=== PATIENT | male | born 1970 | race African-American/Black ===

== ENCOUNTER 2016-07-27 23:13 | Inpatient (IN) | payer BC ==
[2016-07-27] MEDS ORDERED: ONDANSETRON 4 MG/2 ML VIAL IVPUSH STA (23:40)
[2016-07-27] MEDS ORDERED: morphine CARPU-JECT 2 MG/1 ML DISP.SYRIN IVPUSH ONE (23:40)
--- NOTE | 2016-07-27 23:40 | PDOC ---
History of Present Illness - General History Source: Patient Exam Limitations: No Limitations - History of Present Illness Initial Comments: 07/27/16 23:51 The patient is a 46 year old male with significant past medical history of MS, CAD s/p stents x3, hypertension, hyperlipidemia, and gout who presents to the ED with sudden onset of midsternal chest pain prior to arrival. Patient reports diaphoresis earlier today that resolved. He states while having dinner today, he developed midsternal chest pain that he describes as a pressure-like sensation, nonradiating and 6/10, in severity. Reports associated nausea and some difficulty breathing, but no vomiting. Denies lightheadedness, SOB, jaw pain, shoulder pain, arm pain, or leg swelling. Patient is visiting from [place]. States taking all of his medications today. The patient denies fever, chills, cough, abdominal pain, and diarrhea. Allergies: NKDA Social History: No alcohol, tobacco, or drug use reported. Past Surgical History: s/p cardiac stents x3 PCP: None reported <Parvin Murguia - Last Filed: 07/27/16 23:52> - General History Source: Patient <Wilder Cheek - Last Filed: 07/28/16 20:02> - General Chief Complaint: Chest Pain Stated Complaint: CHEST PAIN Time Seen by Provider: 07/27/16 23:38 Past History <Parvin Murguia - Last Filed: 07/27/16 23:52> - Past Medical History Cardiac Disorders: Yes (MS, STENTSX 3) HTN: Yes - Surgical History Cardiac Surgery: Yes (X 3) - Psycho/Social/Smoking Cessation Hx Suicidal Ideation: No Smoking History: Never smoked Have you smoked in the past 12 months: No Information on smoking cessation initiated: No Hx Alcohol Use: No Drug/Substance Use Hx: No Substance Use Type: None <Wilder Cheek - Last Filed: 07/28/16 20:02> - Past Medical History Allergies/Adverse Reactions: Allergies Allergy/AdvReac Type Severity Reaction Status Date / Time No Known Allergies Allergy Verified 07/27/16 23:36 Home Medications: Ambulatory Orders Simvastatin 40 mg PO HS 12/08/15 Aspirin [ASA -] 81 mg PO DAILY tab.chew 07/28/16 Clopidogrel Bisulfate [Plavix -] 75 mg PO DAILY tablet 07/28/16 Heparin - 5,000 unit IVPUSH PRN PRN #0 vial 07/28/16 Heparin Infusion - 500 ml IVPB TITR #1 bag 07/28/16 Metoprolol Succinate [Toprol XL -] 25 mg PO DAILY #30 mg 07/28/16 Morphine Injection - [Morphine Injection 4 mg/1 mL -] 4 mg IVPUSH Q4H PRN #0 mg MDD 6 07/28/16 Review of Systems - Review of Systems Able to Perform ROS?: Yes Comments:: 07/27/16 23:51 CONSTITUTIONAL: +diaphoresis Absent: fever, chills,generalized weakness, malaise, loss of appetite HEENT: Absent: rhinorrhea, nasal congestion, throat pain, throat swelling, difficulty swallowing, mouth swelling, ear pain, eye pain, visual Changes CARDIOVASCULAR: +midsternal chest pain Absent: syncope, palpitations, irregular heart rate, lightheadedness, peripheral edema RESPIRATORY: +mild SOB Absent: cough, dyspnea with exertion, orthopnea, wheezing, stridor, hemoptysis GASTROINTESTINAL: +nausea Absent: abdominal pain, abdominal distension, vomiting, diarrhea, constipation, melena, hematochezia GENITOURINARY: Absent: dysuria, frequency, urgency, hesitancy, hematuria, flank pain, genital pain MUSCULOSKELETAL: Absent: myalgia, arthralgia, joint swelling SKIN: Absent: rash, itching, pallor NEUROLOGIC: Absent: headache, focal weakness or paresthesias, dizziness, unsteady gait, seizure, mental status changes, bladder or bowel incontinence <Parvin Murguia - Last Filed: 07/27/16 23:52> *Physical Exam - Vital Signs Last Vital Signs Temp Pulse Resp BP Pulse Ox 98.9 F 88 22 156/96 99 07/27/16 23:36 07/27/16 23:36 07/27/16 23:36 07/27/16 23:36 07/27/16 23:36 - Physical Exam Comments: 07/27/16 23:51 GENERAL: Well developed, well nourished. Awake and alert. Moderate distress. HEENT: Normocephalic, atraumatic. PERRLA, EOMI. No conjunctival pallor. Sclera are non- icteric. Moist mucous membranes. Oropharynx is clear. NECK: Supple. Full ROM. No JVD. Carotid pulses 2+ and symmetric, without bruits. No thyromegaly. No lymphadenopathy. CARDIOVASCULAR: Regular rate and rhythm. No murmurs, rubs, or gallops. Distal pulses are 2+ and symmetric. PULMONARY: No evidence of respiratory distress. Lungs clear to auscultation bilaterally. No wheezing, rales or rhonchi. ABDOMINAL: Soft. Non-tender. Non-distended. No rebound or guarding. No organomegaly. Normoactive bowel sounds. MUSCULOSKELETAL Normal range of motion at all joints. No bony deformities or tenderness. No CVA tenderness. EXTREMITIES: No cyanosis. No clubbing. No edema. No calf tenderness. SKIN: Warm and dry. Normal capillary refill. No rashes. No jaundice. NEUROLOGICAL: Alert, awake, appropriate. Cranial nerves 2-12 intact. Moving all extremities. No gross focal neurological deficits. PSYCHIATRIC: Cooperative. Good eye contact. Appropriate mood and affect. <Parvin Murguia - Last Filed: 07/27/16 23:52> - Vital Signs Last Vital Signs Temp Pulse Resp BP Pulse Ox 98.9 F 88 22 156/96 99 07/27/16 23:36 07/27/16 23:36 07/27/16 23:36 07/27/16 23:36 07/27/16 23:36 <Wilder Cheek - Last Filed: 07/28/16 20:02> Heart Score/ECG Review - ECG Impressions Comment:: 07/27/16 23:52 Sinus rhythm with frequent premature ventricular complexes @93bpm Possible L atrial enlargement RBBB T wave abnormality, consider lateral ischemia Abnormal ECG <Parvin Murguia - Last Filed: 07/27/16 23:52> ED Treatment Course - LABORATORY CBC & Chemistry Diagram: 07/27/16 23:44 07/27/16 23:44 <Parvin Murguia - Last Filed: 07/27/16 23:52> - LABORATORY CBC & Chemistry Diagram: 07/28/16 05:35 07/28/16 16:40 - RADIOLOGY Radiology Studies Ordered: Category Date Time Status CHEST X-RAY PORTABLE* [RAD] Stat Radiology 07/27/16 23:38 Ordered <Wilder Cheek - Last Filed: 07/28/16 20:02> Medical Decision Making - Medical Decision Making 07/28/16 20:01 Dr. Cheek: The scribe's documentation has been prepared under my direction and personally reviewed by me in its entirery. I confirm that the note above accurately reflects all work, treatment, procedures, and medical decision making performed by me. Pt with chest pain with elevated troponin. Will admitt to evaluate for TELE <Wilder Cheek - Last Filed: 07/28/16 20:02> *DC/Admit/Observation/Transfer - Attestations Scribe Attestion: 07/27/16 23:51 Documentation prepared by Parvin Murguia, acting as medical insurance claims processor for Wilder Cheek MD <Parvin Murguia - Last Filed: 07/27/16 23:52> - Discharge Dispostion Admit: Yes <Wilder Cheek - Last Filed: 07/28/16 20:02> Diagnosis at time of Disposition: NSTEMI (non-ST elevated myocardial infarction)
[2016-07-27] MEDS ORDERED: NITROGLYCERIN 2% OINTMENT - 1GM PACKET TD ONE (23:41)
[2016-07-27] MEDS ORDERED: morphine CARPU-JECT 4 MG/1 ML DISP.SYRIN ONE (23:51)
[2016-07-27] MEDS ORDERED: ONDANSETRON 4 MG/2 ML VIAL ONE (23:51)
[2016-07-27] MEDS ORDERED: morphine CARPU-JECT 2 MG/1 ML DISP.SYRIN ONE (23:51)
[2016-07-27 23:53] LABS: BASOPHIL 1.3 % (0-2.0); EOSINOPHIL 1.8 % (0-4.5); MCH 28.9 pg (25.7-33.7); MCHC 33.6 g/dl (32.0-35.9); MEAN CELL VOLUME 86.2 fl (80-96); MEAN PLT VOLUME 8.3 fl (7.5-11.1); NEUTROPHILS 60.5 % (42.8-82.8); PLATELET COUNT 214 K/MM3 (134-434); RDW 14.6 % (11.9-15.9); WHITE BLOOD COUNT 7.8 K/mm3 (4.0-10.0)
[2016-07-28 00:14] LABS: ALBUMIN 2.6 g/dl (3.4-5.0); BILIRUBIN,TOTAL 0.4 mg/dL (0.2-1.0); CALCIUM 7.7 mg/dL (8.5-10.1); TOT PROT 6.3 g/dl (6.4-8.2)
[2016-07-28 00:18] LABS: INR 1.1 (0.82-1.09); PROTHROMBIN TIME (PATIENT) 12.1 SEC (9.98-11.88)
[2016-07-28 00:26] LABS: TROPONIN I 0.26 ng/ml (0.00-0.05)
[2016-07-28] MEDS ORDERED: POTASSIUM CHLORIDE TABS 20 MEQ TABLET.ER (FP) PO ONE ×2 (00:54→01:03)
[2016-07-28] MEDS ORDERED: CALCIUM GLUCONATE 10% - 1,000 MG/10 ML VIAL IVPB ONE (00:55)
[2016-07-28] MEDS ORDERED: METOPROLOL TARTRATE 5 MG/5 ML VIAL IVPUSH ONE ×2 (00:57→02:42)
[2016-07-28] MEDS ORDERED: morphine CARPU-JECT 2 MG/1 ML DISP.SYRIN IVPUSH ONE (00:57)
[2016-07-28] MEDS ORDERED: CLOPIDOGREL BISULFATE 300 MG TABLET PO ONE (00:58)
[2016-07-28] MEDS ORDERED: morphine CARPU-JECT 4 MG/1 ML DISP.SYRIN ONE (01:03)
[2016-07-28] MEDS ORDERED: CALCIUM GLUCONATE 10% - 1,000 MG/10 ML VIAL ONE (01:03)
[2016-07-28] MEDS ORDERED: METOPROLOL TARTRATE 5 MG/5 ML VIAL ONE (01:03)
[2016-07-28] MEDS ORDERED: CLOPIDOGREL BISULFATE 300 MG TABLET ONE (01:04)
--- NOTE | 2016-07-28 01:08 | HP ---
CHIEF COMPLAINT: Midsternal Chest Pain PCP: Not on Staff Emergency Generator Mechanic: Dr. Clarke ( [employer] [place] [facility] ) Pharmacy: [facility] [address] [place] [address] HISTORY OF PRESENT ILLNESS: This is a 46 y/o male with a significant past medical history of UT, CAD s/p Stents x3, HTN, HLD, Gout. Who presents to the ED with non-radiating midsternal chest pressure, +diaphoretic since last night. Patient reports having nausea with SOB which has resolved. PS 7/10. Patient is from out of town, last visit with his Emergency Generator Mechanic was 3 months ago, patient states" everything was fine". Patient denies fever, chills, cough, AP, vomiting, diarrhea, constipation, dysuria. ER course was notable for: (1) Troponin I 0.26 (2) EKG- SR with PVCs, RBBB, T wave abnormality, consider lateral ischemia (3) K 3.4 (4) Cr 2.0 Recent Travel: None PAST MEDICAL HISTORY: See HPI PAST SURGICAL HISTORY: See HPI Social History: Smoking: Former Alcohol: Occasional Drugs: None Lives with Spouse Family History: Non-Contributory Allergies No Known Allergies Allergy (Verified 07/27/16 23:36) HOME MEDICATIONS: Home Medications Medication Instructions Recorded Allopurinol 300 mg PO DAILY 12/08/15 Aspirin [ASA -] 81 mg PO DAILY 12/08/15 Carvedilol [Coreg] 25 mg PO DAILY 12/08/15 Clopidogrel Bisulfate [Plavix -] 75 mg PO DAILY 12/08/15 Simvastatin 40 mg PO HS 12/08/15 Tramadol HCl 50 mg PO QID PRN 07/28/16 REVIEW OF SYSTEMS CONSTITUTIONAL: diaphoresis Absent: fever, chills, generalized weakness, malaise, loss of appetite, weight change HEENT: Absent: rhinorrhea, nasal congestion, throat pain, throat swelling, difficulty swallowing, mouth swelling, ear pain, eye pain, visual changes CARDIOVASCULAR: chest pain Absent: syncope, palpitations, irregular heart rate, lightheadedness, peripheral edema RESPIRATORY: shortness of breath Absent: cough, dyspnea with exertion, orthopnea, wheezing, stridor, hemoptysis GASTROINTESTINAL: nausea Absent: abdominal pain, abdominal distension, vomiting, diarrhea, constipation, melena, hematochezia GENITOURINARY: Absent: dysuria, frequency, urgency, hesitancy, hematuria, flank pain, genital pain MUSCULOSKELETAL: Absent: myalgia, arthralgia, joint swelling, back pain, neck pain SKIN: Absent: rash, itching, pallor HEMATOLOGIC/IMMUNOLOGIC: Absent: easy bleeding, easy bruising, lymphadenopathy, frequent infections ENDOCRINE: Absent: unexplained weight gain, unexplained weight loss, heat intolerance, cold intolerance NEUROLOGIC: Absent: headache, focal weakness or paresthesias, dizziness, unsteady gait, seizure, mental status changes, bladder or bowel incontinence PSYCHIATRIC: Absent: anxiety, depression, suicidal or homicidal ideation, hallucinations. PHYSICAL EXAMINATION Vital Signs - 24 hr 07/27/16 23:36 Temperature 98.9 F Pulse Rate 88 Respiratory 22 Rate Blood Pressure 156/96 O2 Sat by Pulse 99 Oximetry (%) GENERAL: Awake, alert, and fully oriented. Severely Obese moderate distress. HEAD: Normal with no signs of trauma. EYES: Pupils equal, round and reactive to light, extraocular movements intact, sclera anicteric, conjunctiva clear. No lid lag. EARS, NOSE, THROAT: Ears normal, nares patent, oropharynx clear without exudates. Moist mucous membranes. NECK: Normal range of motion, supple without lymphadenopathy, JVD, or masses. LUNGS: Breath sounds equal, clear to auscultation bilaterally. No wheezes, and no crackles. No accessory muscle use. HEART: Regular rate and rhythm, normal S1 and S2 without murmur, rub or gallop. ABDOMEN: Soft, obese, nontender, not distended, normoactive bowel sounds, no guarding, no rebound, no masses. No hepatomegaly or splenomegaly. MUSCULOSKELETAL: Normal range of motion at all joints. No bony deformities or tenderness. No CVA tenderness. UPPER EXTREMITIES: 2+ pulses, warm, well-perfused. No cyanosis. No clubbing. No peripheral edema. LOWER EXTREMITIES: 2+ pulses, warm, well-perfused. No calf tenderness. Trace peripheral edema lower extremities. NEUROLOGICAL: Cranial nerves II-XII intact. Normal speech. Gait not observed. PSYCHIATRIC: Cooperative. Good eye contact. Appropriate mood and affect. SKIN: Warm, dry, normal turgor, no rashes or lesions noted, normal capillary refill. Laboratory Results - last 24 hr 07/27/16 07/27/16 07/27/16 23:44 23:44 23:44 WBC 7.8 RBC 5.02 Hgb 14.5 Hct 43.3 MCV 86.2 MCHC 33.6 RDW 14.6 Plt Count 214 MPV 8.3 Neutrophils % 60.5 Lymphocytes % 24.8 Monocytes % 11.6 H Eosinophils % 1.8 Basophils % 1.3 INR 1.10 Sodium 140 Potassium 3.4 L Chloride 102 Carbon Dioxide 28 Anion Gap 10 BUN 16 Creatinine 2.0 H Creat Clearance w eGFR 36.31 Random Glucose 105 Calcium 7.7 L Total Bilirubin 0.4 AST 48 H ALT 31 Alkaline Phosphatase 90 Creatine Kinase 879 H Creatine Kinase Index 0.8 CK-MB (CK-2) 6.834 H CK-MB (CK-2) Rel Index Troponin I 0.26 H Total Protein 6.3 L Albumin 2.6 L 07/27/16 23:44 WBC RBC Hgb Hct MCV MCHC RDW Plt Count MPV Neutrophils % Lymphocytes % Monocytes % Eosinophils % Basophils % INR Sodium Potassium Chloride Carbon Dioxide Anion Gap BUN Creatinine Creat Clearance w eGFR Random Glucose Calcium Total Bilirubin AST ALT Alkaline Phosphatase Creatine Kinase Creatine Kinase Index CK-MB (CK-2) CK-MB (CK-2) Rel Index Cancelled Troponin I Total Protein Albumin ASSESSMENT/PLAN: This is a 46 y/o male with a significant medical history of: UT, CAD s/p Stents x3, HTN, HLD, Gout. Admitted to Telemetry NSTEMI for further evaluation of their emergent condition. Problem List - Problem (1) NSTEMI (non-ST elevated myocardial infarction) Assessment/Plan: - Continue Tele monitoring - HEART Score 6 - YONATAN Score 3 - EKG reviewed - Appreciate Cardiology Consult - NTG paste, BB, Plavix, Morphine given in ED - Heparin Protocol initiated - Stool Occult Series - Continue Asa, BB, Plavix, Statin - Morphine prn - Echo in am - Consider Stress test Code(s): I21.4 - NON-ST ELEVATION (NSTEMI) MYOCARDIAL INFARCTION (2) CAD (coronary artery disease) Assessment/Plan: - s/p Stent placement x3 (2015) - Continue Tele monitoring - EKG- SR with multifocal PVCs, RBBB, T wave abnormality, no prior study available to compare - Continue Coreg - Will need to verify with home pharmacy Losartan, Lasix Code(s): I25.10 - ATHSCL HEART DISEASE OF [place] CORONARY ARTERY W/O ANG PCTRS (3) JENAE (acute kidney injury) Assessment/Plan: - ?Baseline - Will not give IVF at this time 2/2 patient's elevated BP - Will repeat BMP this am - Monitor and treat with interventions according - Consider renal US Code(s): N17.9 - ACUTE KIDNEY FAILURE, UNSPECIFIED (4) HTN (hypertension) Assessment/Plan: - Uncontrolled - Lopressor given in ED - Continue home med - Monitor BP - Monitor renal function Code(s): I10 - ESSENTIAL (PRIMARY) HYPERTENSION (5) HLD (hyperlipidemia) Assessment/Plan: - Continue Simvastatin - Lipid Panel in am Code(s): E78.5 - HYPERLIPIDEMIA, UNSPECIFIED (6) BMI 40.0-44.9, adult Assessment/Plan: Counseled patient on weight loss - [facility] - Appreciate RD Consult Code(s): Z68.41 - BODY MASS INDEX (BMI) 40.0-44.9, ADULT (7) Gout Assessment/Plan: - Continue Allopurinol Code(s): M10.9 - GOUT, UNSPECIFIED (8) DVT prophylaxis Assessment/Plan: - OOB - SCDs - Continue Heparin Infusion for NSTEMI Code(s): AOV8825 - Visit type - Emergency Visit Emergency Visit: Yes ED Registration Date: 07/28/16 Care time: The patient presented to the Emergency Department on the above date and was hospitalized for further evaluation of their emergent condition. - New Patient This patient is new to me today: Yes Date on this admission: 07/28/16 - Critical Care Critical Care patient: No
[2016-07-28] MEDS ORDERED: ENOXAPARIN NA (PORCINE) 40 MG/0.4 ML DISP.SYRIN SQ ONE (02:25)
[2016-07-28] MEDS ORDERED: HEPARIN NA (PORCINE) 5,000 UNITS/ML 1ML VIAL IVPUSH PRN (02:44)
[2016-07-28] MEDS ORDERED: HEPARIN INFUSION - 500 ML IVPB SCH (02:45)
[2016-07-28 04:59] VITALS: BMI 43.9
[2016-07-28] MEDS: morphine CARPU-JECT 4 MG/1 ML DISP.SYRIN IVPUSH PRN ×3 (07:46→21:20)
[2016-07-28 08:03] LABS: MCH 28.5 pg (25.7-33.7); MCHC 32.6 g/dl (32.0-35.9); MEAN CELL VOLUME 87.4 fl (80-96); PLATELET COUNT 189 K/MM3 (134-434); RDW 14.9 % (11.9-15.9); WHITE BLOOD COUNT 6.7 K/mm3 (4.0-10.0)
[2016-07-28 08:38] LABS: CHOLESTEROL 255 mg/dL (50-200); LDL CHOLESTEROL (ONLY SJRH) 171 mg/dL (5-100)
[2016-07-28 09:26] LABS: TROPONIN I 1.76 ng/ml (0.00-0.05)
--- NOTE | 2016-07-28 09:53 | CON.CARD ---
Consult Consult Specialty:: Cardiology Reason for Consultation:: nonstemi - History of Present Illness History of Present Illness: The patient is a 46 year old male with significant past medical history of PA, CAD s/p stents x3, hypertension, hyperlipidemia, and gout who presents to the ED with sudden onset of midsternal chest pain prior to arrival. Patient reports diaphoresis earlier today that resolved. He states while having dinner today, he developed midsternal chest pain that he describes as a pressure-like sensation, nonradiating and 6/10, in severity. Reports associated nausea and some difficulty breathing, but no vomiting. Denies lightheadedness, SOB, jaw pain, shoulder pain, arm pain, or leg swelling. Patient is visiting from [place]. States taking all of his medications today. The patient denies fever, chills, cough, abdominal pain, and diarrhea. Allergies: NKDA Social History: No alcohol, tobacco, or drug use reported. Past Surgical History: s/p cardiac stents x3 PCP: None reported - History Source History Provided By: Patient, Medical Record - Past Medical History Cardio/Vascular: Yes: CAD, CHF, HTN, Hyperlipdemia - Alcohol/Substance Use Hx Alcohol Use: No - Smoking History Smoking history: Never smoked Have you smoked in the past 12 months: No Home Medications - Allergies Allergies/Adverse Reactions: Allergies Allergy/AdvReac Type Severity Reaction Status Date / Time No Known Allergies Allergy Verified 07/27/16 23:36 - Home Medications Home Medications: Ambulatory Orders Allopurinol 300 mg PO DAILY 12/08/15 Aspirin [ASA -] 81 mg PO DAILY 12/08/15 Carvedilol [Coreg] 25 mg PO DAILY 12/08/15 Clopidogrel Bisulfate [Plavix -] 75 mg PO DAILY 12/08/15 Simvastatin 40 mg PO HS 12/08/15 Tramadol HCl 50 mg PO QID PRN 07/28/16 Review of Systems - Review of Systems Constitutional: reports: No Symptoms Eyes: reports: No Symptoms HENT: reports: No Symptoms Neck: reports: No Symptoms Cardiovascular: reports: Chest Pain Gastrointestinal: reports: No Symptoms Genitourinary: reports: No Symptoms Breasts: reports: No Symptoms Reported Musculoskeletal: reports: No Symptoms Integumentary: reports: No Symptoms Neurological: reports: No Symptoms Endocrine: reports: No Symptoms Hematology/Lymphatic: reports: No Symptoms Psychiatric: reports: No Symptoms Vital Signs: Vital Signs Temperature 97.9 F 07/28/16 04:14 Pulse Rate 80 07/28/16 06:00 Respiratory Rate 20 07/28/16 06:00 Blood Pressure 140/94 07/28/16 06:00 O2 Sat by Pulse Oximetry (%) 98 07/28/16 04:37 Constitutional: Yes: Well Nourished, No Distress, Calm Eyes: Yes: WNL, Conjunctiva Clear, EOM Intact HENT: Yes: WNL, Atraumatic, Normocephalic Neck: Yes: WNL, Supple, Trachea Midline Respiratory: Yes: WNL, Regular, CTA Bilaterally Gastrointestinal: Yes: WNL, Normal Bowel Sounds Renal/: Yes: WNL Cardiovascular: Yes: WNL, Regular Rate and Rhythm Musculoskeletal: Yes: WNL Extremities: Yes: WNL Integumentary: Yes: WNL Neurological: Yes: WNL, Alert, Oriented ...Motor Strength: WNL Psychiatric: Yes: WNL, Alert, Oriented - Other Data Labs, Other Data: CBC, BMP 07/28/16 05:35 INR, PTT INR 1.10 (0.82-1.09) 07/27/16 23:44 Troponin, BNP 07/28/16 05:35 Troponin I 1.76 H* D Troponin, BNP 07/28/16 05:35 Troponin I 1.76 H* D Imaging - Results Chest X-ray: Image Reviewed (prominent mediastinum no i/e) EKG: Image Reviewed (sr rbbb lateral st depressions) Problem List - Problems (1) JENAE (acute kidney injury) Code(s): N17.9 - ACUTE KIDNEY FAILURE, UNSPECIFIED (2) BMI 40.0-44.9, adult Code(s): Z68.41 - BODY MASS INDEX (BMI) 40.0-44.9, ADULT (3) CAD (coronary artery disease) Code(s): I25.10 - ATHSCL HEART DISEASE OF [place] CORONARY ARTERY W/O ANG PCTRS (4) DVT prophylaxis Code(s): [id number] - (5) Gout Code(s): M10.9 - GOUT, UNSPECIFIED (6) HLD (hyperlipidemia) Code(s): E78.5 - HYPERLIPIDEMIA, UNSPECIFIED (7) HTN (hypertension) Code(s): I10 - ESSENTIAL (PRIMARY) HYPERTENSION (8) NSTEMI (non-ST elevated myocardial infarction) Code(s): I21.4 - NON-ST ELEVATION (NSTEMI) MYOCARDIAL INFARCTION (9) Severe obesity (BMI 35.0-39.9) with comorbidity Code(s): E66.01 - MORBID (SEVERE) OBESITY DUE TO EXCESS CALORIES (10) Gout attack Code(s): M10.9 - GOUT, UNSPECIFIED Qualifiers: Gout site: knee Gout etiology: unspecified cause Laterality: right Qualified Code(s): M10.9 - Gout, unspecified Assessment/Plan nonstemi CP free now moderatel reduced ef dilated AR 4 cm ? (perhaps normal; finding for BSA3.1 m2 Prominent mediastinum 3 cardiac stents 1 year agoHLD morbid obesity htn acute kidney injury Plan will transfer for c. cath and aortogram add BB cont heparin bb lipitor
[2016-07-28] MEDS ORDERED: ASPIRIN 81 MG CHEWABLE TABLETS PO SCH (10:00)
[2016-07-28] MEDS ORDERED: CLOPIDOGREL BISULFATE 75 MG TABLET (FP) PO SCH (10:00)
[2016-07-28] MEDS ORDERED: ATORVASTATIN CA 80 MG TABLET (FP) PO ONE (10:56)
[2016-07-28] MEDS ORDERED: METOPROLOL SUCCINATE 25 MG TAB.SR.24H (FP) PO SCH (11:00)
[2016-07-28 13:28] LABS: TROPONIN I 4.81 ng/ml (0.00-0.05)
--- NOTE | 2016-07-28 13:31 | EKG ---
Test Reason : Blood Pressure : / mmHG Vent. Rate : 093 BPM Atrial Rate : 093 BPM P-R Int : 178 ms QRS Dur : 164 ms QT Int : 430 ms P-R-T Axes : 078 234 013 degrees QTc Int : 534 ms SINUS RHYTHM WITH FREQUENT PREMATURE VENTRICULAR COMPLEXES POSSIBLE LEFT ATRIAL ENLARGEMENT RIGHT BUNDLE BRANCH BLOCK T WAVE ABNORMALITY, CONSIDER LATERAL ISCHEMIA ABNORMAL ECG NO PREVIOUS ECGS AVAILABLE Confirmed by JEREMIAH GOSS, NOÉ ([id number]) on 07/28/2016 1:31:17 PM Referred By: Confirmed By:NOÉ DANIELS MD
--- NOTE | 2016-07-28 14:42 | DS ---
Physical Exam: SUBJECTIVE: Patient seen and examined OBJECTIVE: Vital Signs Period Temp Pulse Resp BP Sys/Mercer Pulse Ox Last 24 Hr 97.9 F-98.2 F 71-83 16-22 135-177/85-107 93-98 PHYSICAL EXAM GENERAL: The patient is awake, alert, and fully oriented, in no acute distress. HEAD: Normal with no signs of trauma. EYES: PERRL, extraocular movements intact, sclera anicteric, conjunctiva clear. ENT: Ears normal, nares patent, oropharynx clear without exudates, moist mucous membranes. NECK: Trachea midline, full range of motion, supple. LUNGS: Breath sounds equal, clear to auscultation bilaterally, no wheezes, no crackles, no accessory muscle use. HEART: Regular rate and rhythm, S1, S2 without murmur, rub or gallop. ABDOMEN: Soft, nontender, nondistended, normoactive bowel sounds, no guarding, no rebound, no hepatosplenomegaly, no masses. EXTREMITIES: 2+ pulses, warm, well-perfused, no edema. NEUROLOGICAL: Cranial nerves II through XII grossly intact. Normal speech, gait not observed. PSYCH: Normal mood, normal affect. SKIN: Warm, dry, normal turgor, no rashes or lesions noted. LABS Laboratory Results - last 24 hr 07/28/16 07/28/16 07/28/16 05:35 05:35 05:35 WBC RBC Hgb Hct MCV MCHC RDW Plt Count MPV PTT (Actin FS) Hemoglobin A1c % 5.9 Creatine Kinase 1022 H Creatine Kinase Index 3.9 CK-MB (CK-2) 39.804 H CK-MB (CK-2) Rel Index Troponin I 1.76 H* D Triglycerides 256 H Cholesterol 255 H Total LDL Cholesterol 171 H HDL Cholesterol 45 07/28/16 07/28/16 07/28/16 05:35 05:35 05:35 WBC 6.7 RBC 4.98 Hgb 14.2 Hct 43.5 MCV 87.4 MCHC 32.6 RDW 14.9 Plt Count 189 MPV 9.0 PTT (Actin FS) 37.4 H Hemoglobin A1c % Creatine Kinase Creatine Kinase Index CK-MB (CK-2) CK-MB (CK-2) Rel Index Cancelled Troponin I Triglycerides Cholesterol Total LDL Cholesterol HDL Cholesterol 07/28/16 07/28/16 12:25 12:25 WBC RBC Hgb Hct MCV MCHC RDW Plt Count MPV PTT (Actin FS) Hemoglobin A1c % Creatine Kinase 1140 H Creatine Kinase Index 7.9 H* CK-MB (CK-2) 89.694 H CK-MB (CK-2) Rel Index Cancelled Troponin I 4.81 H* D Triglycerides Cholesterol Total LDL Cholesterol HDL Cholesterol HOSPITAL COURSE: Date of Admission:07/28/16 Date of Discharge: 07/28/16 Pre hospital course This is a 46 y/o male with a significant past medical history of CT, CAD s/p Stents x3, HTN, HLD, Gout. Who presents to the ED with non-radiating midsternal chest pressure, +diaphoretic since last night. Patient reports having nausea with SOB which has resolved. PS 7/10. Patient is from out of town, last visit with his Nuclear Medicine Chief Technologist was 3 months ago, patient states" everything was fine". Patient denies fever, chills, cough, AP, vomiting, diarrhea, constipation, dysuria. ER course was notable for: (1) Troponin 0.26 (2) EKG- SR with PVCs, RBBB, T wave abnormality, consider lateral ischemia (3) K 3.4 (4) Cr 2.0 Subsequent hospital course Troponins 0.26-->1.76-->4.81 Echo: LV moderately dilated, moderate concentric LV hypertrophy, LV function moderately reduced, moderate global hypokinesis; RV normal; SANDY; mild to moderate MR; mild to moderate TR; RVSP 40-50mmHg; mild PI Impression: NSTEMI Plan: treated with ASA, Plavix, Toprol XL, Lipitor, heparin drip Dispo: transferred for cardiac cath Minutes to complete discharge: 35 Discharge Summary Reason For Visit: NSTEMI Current Active Problems JNEAE (acute kidney injury) (Acute) BMI 40.0-44.9, adult (Acute) CAD (coronary artery disease) (Acute) DVT prophylaxis (Acute) Gout (Acute) HLD (hyperlipidemia) (Acute) HTN (hypertension) (Acute) NSTEMI (non-ST elevated myocardial infarction) (Acute) Severe obesity (BMI 35.0-39.9) with comorbidity (Acute) - Instructions Referrals: STAFF,NOT ON [Primary Care Provider] - Disposition: TRANSFER ACUTE CARE/OTHER HOSP - Home Medications Comprehensive Discharge Medication List: Ambulatory Orders Simvastatin 40 mg PO HS 12/08/15 Aspirin [ASA -] 81 mg PO DAILY tab.chew 07/28/16 Clopidogrel Bisulfate [Plavix -] 75 mg PO DAILY tablet 07/28/16 Heparin - 5,000 unit IVPUSH PRN PRN #0 vial 07/28/16 Heparin Infusion - 500 ml IVPB TITR #1 bag 07/28/16 Metoprolol Succinate [Toprol XL -] 25 mg PO DAILY #30 mg 07/28/16 Morphine Injection - [Morphine Injection 4 mg/1 mL -] 4 mg IVPUSH Q4H PRN #0 mg MDD 6 07/28/16 This patient is new to me today: Yes Date on this admission: 08/20/16 Emergency Visit: Yes ED Registration Date: 07/28/16 Care time: The patient presented to the Emergency Department on the above date and was hospitalized for further evaluation of their emergent condition. Critical Care patient: Yes Total Critical Care Time (in minutes): 35 Critical Care Statement: The care of this patient involved high complexity decision making to prevent further life threatening deterioration of the patient 's condition and/or to evalute & treat vital organ system(s) failure or risk of failure. - Discharge Referral Referred to [facility] Med [facility].: No
[2016-07-28] MEDS ORDERED: SODIUM CHLORIDE 0.45% 1,000 ML IV SCH (16:45)
[2016-07-28 17:29] LABS: CALCIUM 7.7 mg/dL (8.5-10.1); CREATININE 1.9 mg/dL (0.7-1.3)
[2016-07-28] MEDS ORDERED: NITROGLYCERIN 2% OINTMENT - 1GM PACKET TD ONE (20:21)
[2016-07-28] MEDS ORDERED: ENOXAPARIN NA (PORCINE) 120 MG/0.8 ML DISP.SYRIN SQ SCH (22:00)
[2016-07-28 22:36] VITALS: BP 137/65; PULSE 74; TEMP 97.2
[2016-07-29] MEDS ORDERED: CLOPIDOGREL BISULFATE 75 MG TABLET (FP) PO SCH (10:00)
--- NOTE | 2016-08-02 11:29 | EKG ---
Test Reason : Blood Pressure : / mmHG Vent. Rate : 071 BPM Atrial Rate : 071 BPM P-R Int : 162 ms QRS Dur : 166 ms QT Int : 462 ms P-R-T Axes : 069 221 -24 degrees QTc Int : 502 ms NORMAL SINUS RHYTHM RIGHT BUNDLE BRANCH BLOCK , PLUS RIGHT VENTRICULAR HYPERTROPHY ABNORMAL ECG WHEN COMPARED WITH ECG OF 27-JUL-2016 23:36, PREMATURE VENTRICULAR COMPLEXES ARE NO LONGER PRESENT T WAVE INVERSION NO LONGER EVIDENT IN ANTERIOR LEADS Confirmed by GWEN CABRERA MD ([id number]) on 08/02/2016 11:29:15 AM Referred By: Confirmed By:GWEN CABRERA MD
== END 2016-07-28 22:00 | disposition short-term general hospital (02) | DRG 281 ==
LOC: JER 23:13 → JERBED 07-28 00:59 → UNDOADMIN 07-28 01:04 → J4W 07-28 03:54
PROVIDERS: ADMIT Internal Medicine; ATTEND Nurse Practitioner Acute Care
DX: I21.4 Non-ST elevation (NSTEMI) myocardial infarction (principal); N17.9 Acute kidney failure, unspecified; Z68.41 Body mass index [BMI] 40.0-44.9, adult; I25.10 Atherosclerotic heart disease of native coronary artery without angina pectoris; Z95.5 Presence of coronary angioplasty implant and graft; I10 Essential (primary) hypertension; E78.5 Hyperlipidemia, unspecified; M10.9 Gout, unspecified; R07.9 Chest pain, unspecified; E66.01 Morbid (severe) obesity due to excess calories
CPT/HCPCS: 36415; 71010-TC; 80048; 80053; 80061; 82550; 82553; 83036; 83721; 84484; 85025; 85027; 85610; 85730; 93005; 93010; 93306-TC; 99285-25; J1644